=== PATIENT | male | born 1985 | race Caucasian/White ===

== ENCOUNTER 2021-05-25 07:38 | Emergency (ER) | payer OTHER, SELFPAY ==
[~2021-05-25] VITALS: Ht 182.9 cm; Wt 108.5 kg
[~2021-05-25 07:38] MED LIST: OXYC10TA3 PO
[2021-05-25] MEDS ORDERED: SYNT112T2 PO (07:55)
[2021-05-25] MEDS ORDERED: SYNT100T PO (07:55)
[2021-05-25] MEDS ORDERED: MORPHINE 4 MG/ML 1ML VIAL/SYRINGE (J2270) IV ONE (08:35)
[2021-05-25] MEDS ORDERED: ONDANSETRON 4MG/2ML VIAL IV ONE (08:35)
[2021-05-25 08:42] LABS: BASO # 0.1 10^3/uL (0.0-0.2); BASO % 0.5 % (0.0-1.0); EOS # 0.1 10^3/uL (0.0-0.5); EOS % 0.8 % (0.0-3.0); HEMATOCRIT 49.5 % (42.0-52.0); HEMOGLOBIN 16.6 g/dl (13.5-17.5); LYMPH % 9.4 % (24.0-44.0); MEAN CORPUSCULAR HEMOGLOBIN 31.1 pg (27.0-33.0); MEAN CORPUSCULAR HGB CONC 33.5 g/dl (32.0-36.5); MEAN CORPUSCULAR VOLUME 92.9 fl (80.0-96.0); MONO # 0.5 10^3/uL (0.0-0.8); MONO % 4.5 % (2.0-8.0); NEUTROPHILS # 9.3 10^3/uL (1.5-8.5); NEUTROPHILS % 84.4 % (36.0-66.0); PLATELET COUNT, AUTOMATED 272 10^3/uL (150-450); RED BLOOD COUNT 5.33 10^6/uL (4.30-6.10)
[2021-05-25 09:01] LABS: ALT/SGPT 40 U/L (12-78); AMYLASE 50 U/L (25-115); BILIRUBIN,DIRECT < 0.1 MG/DL (0.0-0.2); BILIRUBIN,TOTAL 0.4 MG/DL (0.2-1.0); BLOOD UREA NITROGEN 9 MG/DL (7-18); CALCIUM LEVEL 9.2 MG/DL (8.5-10.1); CARBON DIOXIDE LEVEL 30 MEQ/L (21-32); CHLORIDE LEVEL 106 MEQ/L (98-107); CK-MB VALUE MASS 3.5 NG/ML (<3.6); CPK CREATINE PHOSPHOKINASE 585 U/L (39-308); CREATININE FOR GFR 1.37 MG/DL (0.70-1.30); GLOMERULAR FILTRATION RATE > 60.0 (>60); GLUCOSE, FASTING 103 MG/DL (70-100); LIPASE 103 U/L (73-393); POTASSIUM SERUM 4.9 MEQ/L (3.5-5.1); SODIUM LEVEL 141 MEQ/L (136-145); TOTAL PROTEIN 7.6 GM/DL (6.4-8.2); TROPONIN I < 0.02 NG/ML (< 0.10)
--- NOTE | 2021-05-25 09:13 | REP ---
INDICATION: flank pain COMPARISON: None. TECHNIQUE: CT Scan of the abdomen and pelvis was performed without intravenous contrast. Sagittal and coronal reconstruction images performed. FINDINGS: Lung bases: There are minimal fibrotic changes. Liver: Grossly unremarkable. Gallbladder: Unremarkable. Spleen: Grossly unremarkable. Adrenals: Normal. Pancreas: Grossly unremarkable.. Kidneys: There is a punctate intrarenal calculus in the upper pole the left kidney, a punctate calculus in the lower pole the left kidney as well as a 3 mm calculus in the left lower pole. There is no left hydroureteronephrosis. There is a punctate calculus in the mid right kidney. There is mild right hydroureteronephrosis, caused by a calculus in the distal right ureter just proximal to the ureterovesical junction, measuring 4 mm in diameter. Small and large bowel: Grossly unremarkable. Free fluid: None. Abdominal aorta: No aneurysm. Adenopathy: None. Appendix: Not inflamed. Osseous structures: Unremarkable. Pelvis: No mass. No bladder calculus seen. IMPRESSION: Small bilateral intrarenal calculi. There is mild right hydroureteronephrosis, caused by a calculus in the distal right ureter just proximal to the ureterovesical junction, measuring 4 mm in diameter. <Electronically signed by Jesús Schultz > 05/25/21 [id number]
[2021-05-25] MEDS ORDERED: KETOROLAC 30 MG/ML 1ML VIAL IV ONE (09:30)
[2021-05-25] MEDS ORDERED: FLOM0.4C39 PO (10:22)
[2021-05-25] MEDS ORDERED: HYDR-3713 PO (10:24)
[2021-05-25] MEDS ORDERED: OXYC1TAB23 PO (10:58)
[2021-05-25 11:59] VITALS: BP 126/86
--- NOTE | 2021-05-26 18:23 | ECGEPIP ---
[facility] Test Date: 2021-05-25 Pat Name: JOYCE MELISSA Department: Room: - Gender: Male Kennel Assistant: SINTIA : 1985 Requested By: Freddie Marie Order Number: [id number] Reading MD: Troy Jamil Measurements Intervals [place] Rate: 75 P: 36 CA: 126 QRS: 32 QRSD: 88 T: 17 QT: 364 QTc: 406 Interpretive Statements Normal sinus rhythm No prior tracing in the system Electronically Signed on 05-26-2021 18:23:21 EDT by Troy Jamil
== END 2021-05-25 12:01 | disposition home or self-care (01) ==
LOC: M ED 07:38
DX: N13.2 Hydronephrosis with renal and ureteral calculous obstruction (principal); E03.9 Hypothyroidism, unspecified; Z79.890 Hormone replacement therapy; Z79.899 Other long term (current) drug therapy
CPT/HCPCS: 74176; 80048; 80076; 81001; 82150; 82550; 82553; 83690; 84484; 85025; 93005; 96374; 96375; 99284; J1885; J2270; J2405

== ENCOUNTER 2024-11-17 11:41 | Day surgery (SDC) | payer OTHER ==
[~2024-11-17] VITALS: Ht 185.4 cm; Wt 103.9 kg
[~2024-11-17 11:41] MED LIST changes: +HYDR-3490 PO; +HYDR-3713 PO; +LIDOCAINE 2% 100MG/5ML SDV (FOR ANES.) As Ordered ONE; +OXYC1TAB23 PO; +SYNT100T PO; +SYNT112T2 PO; +SYNT137T7 PO; +TAMS-18 PO; +propofoL 200 MG/20 ML VIAL As Ordered ONE
[2024-11-17] MEDS ORDERED: fentaNYL 100 MCG/2 ML INJECTION As Ordered ONE (12:29)
[2024-11-17 13:10] VITALS: TEMP 97.1
[2024-11-17 13:26] VITALS: BP 123/87; O2SAT 98
== END 2024-11-17 13:38 | disposition home or self-care (01) ==
LOC: M OPP 11:41
PROVIDERS: ATTEND Internal Medicine Gastroenterology
DX: K64.0 First degree hemorrhoids (principal); D50.9 Iron deficiency anemia, unspecified; K44.9 Diaphragmatic hernia without obstruction or gangrene; K21.00 Gastro-esophageal reflux disease with esophagitis, without bleeding; Z79.899 Other long term (current) drug therapy
CPT/HCPCS: 43239; 45378; 88305; J3010